=== PATIENT | female | born 1980 | race African-American/Black ===

== ENCOUNTER 2019-03-26 12:47 | Emergency (ER) | payer MEDICAID ==
[~2019-03-26] VITALS: Ht 172.7 cm; Wt 74.0 kg
[2019-03-26 13:52] LABS: BASOPHILS % 1.4 % (0.0-2.0); HEMATOCRIT. 27.6 % (36.0-48.0); HEMOGLOBIN. 8.8 g/dL (12.0-16.0); LYMPHOCYTES % 42.2 % (20.0-50.0); MEAN CORPUSCULAR HEMOGLOBIN 22.8 pg (28.0-32.0); MEAN CORPUSCULAR VOLUME 71.6 fL (81.0-99.0); MEAN PLATELET VOLUME 7.1 fl (7.4-10.4); MONOCYTES % 7.1 % (2.0-8.0); NEUTROPHILS % 40.3 % (40.0-76.0); PLATELET 385 x1000/uL (130-400); RED BLOOD CELL COUNT 3.85 mill/uL (4.2-5.4); RED CELL DISTRIBUTION WIDTH 18.2 % (11.6-14.6)
[2019-03-26 14:08] LABS: CHLORIDE 107 mEq/L (98-107)
[2019-03-26 14:14] LABS: HCG SCREEN NEGATIVE
[2019-03-26 15:40] VITALS: BP 128/80
== END 2019-03-26 15:55 | disposition home or self-care (01) ==
LOC: ER 12:47
DX: R10.33 Periumbilical pain (principal); F12.10 Cannabis abuse, uncomplicated; Z98.890 Other specified postprocedural states
CPT/HCPCS: 36415; 74174; 80053; 81025; 83690; 84703; 85025; 93005; 99284; Z7610